=== PATIENT | male | born 1945 | race Caucasian/White ===

== ENCOUNTER → 2019-12-19 | Outpatient (CLI) | payer MEDICARE ==
[~2019-12-19] MED LIST: AMARYL4 MG PO; ASPIRIN81 M2 PO; CARVEDILOL3.125 MG PO; FISH OIL 1,0001 EAC5 PO; GLUCOPHAGE1000 MG PO; JANUVIA100 MG PO; MULTIVITAMINS1 EAC7 PO; SIMVASTATIN20 MG PO
== END ==
LOC: M.RAD 15:35
DX: M19.011 Primary osteoarthritis, right shoulder (principal); M47.812 Spondylosis without myelopathy or radiculopathy, cervical region

== ENCOUNTER → 2020-04-17 | Outpatient (CLI) | payer MEDICARE ==
[~2020-04-17] MED LIST changes: +CARTRIDGE STAM1 EACH SQ; +LIPITOR80 MG PO; +PROTONIX40 M2 PO; +TIZANIDINE HCL2 M1 PO; +TYLENOL EXTRA500 MG PO
== END ==
LOC: M.MRI 11:04
PROVIDERS: ATTEND Internal Medicine
DX: M48.02 Spinal stenosis, cervical region (principal); M47.22 Other spondylosis with radiculopathy, cervical region; G89.29 Other chronic pain; M25.78 Osteophyte, vertebrae

== ENCOUNTER → 2020-04-30 | Outpatient (CLI) | payer MEDICARE | LOC: M.PC 09:20 | PROVIDERS: ATTEND Physical Medicine & Rehabilitation | DX: M50.30 Other cervical disc degeneration, unspecified cervical region (principal); M48.02 Spinal stenosis, cervical region; M47.812 Spondylosis without myelopathy or radiculopathy, cervical region; M75.41 Impingement syndrome of right shoulder; M19.011 Primary osteoarthritis, right shoulder ==

== ENCOUNTER → 2020-05-02 | Outpatient (CLI) | payer MEDICARE | LOC: M.MRI 06:58 | PROVIDERS: ATTEND Physical Medicine & Rehabilitation | DX: M75.101 Unspecified rotator cuff tear or rupture of right shoulder, not specified as traumatic (principal); M77.8 Other enthesopathies, not elsewhere classified ==

== ENCOUNTER → 2020-05-09 | Outpatient (CLI) | payer MEDICARE | END | disposition home or self-care (01) | LOC: M.PC 05:52 | PROVIDERS: ATTEND Physical Medicine & Rehabilitation | DX: M25.511 Pain in right shoulder (principal); M75.41 Impingement syndrome of right shoulder; M75.01 Adhesive capsulitis of right shoulder; M19.011 Primary osteoarthritis, right shoulder; E11.9 Type 2 diabetes mellitus without complications; Z79.4 Long term (current) use of insulin; Z98.890 Other specified postprocedural states; Z79.899 Other long term (current) drug therapy ==

== ENCOUNTER → 2020-05-23 | Outpatient (CLI) | payer MEDICARE | LOC: M.PC 05:17 | PROVIDERS: ATTEND Physical Medicine & Rehabilitation | DX: M47.812 Spondylosis without myelopathy or radiculopathy, cervical region (principal); M48.02 Spinal stenosis, cervical region; M50.30 Other cervical disc degeneration, unspecified cervical region; M75.41 Impingement syndrome of right shoulder; M19.011 Primary osteoarthritis, right shoulder; M75.02 Adhesive capsulitis of left shoulder; M75.22 Bicipital tendinitis, left shoulder ==

== ENCOUNTER → 2020-06-20 | Outpatient (CLI) | payer MEDICARE | LOC: M.PC 09:50 | PROVIDERS: ATTEND Physical Medicine & Rehabilitation | DX: M47.812 Spondylosis without myelopathy or radiculopathy, cervical region (principal); M50.323 Other cervical disc degeneration at C6-C7 level; M48.02 Spinal stenosis, cervical region; M19.011 Primary osteoarthritis, right shoulder; M75.41 Impingement syndrome of right shoulder ==